=== PATIENT | female | born 1930 | race Caucasian/White ===

== ENCOUNTER 2018-03-19 03:42 | Inpatient (IN) | payer MEDICARE, OTHER ==
[~2018-03-19] VITALS: Ht 160 cm; Wt 77.8 kg
[2018-03-19] MEDS ORDERED: ONDANSETRON ODT 4 MG ONE (04:01)
[2018-03-19] MEDS ORDERED: MORPHINE SULFATE 4 MG/ML, 1ML ONE ×3 (04:17→05:56)
[2018-03-19] MEDS ORDERED: ONDANSETRON 2MG/ML, 2ML ONE (04:17)
[2018-03-19] MEDS: MORPHINE SULFATE 4 MG/ML, 1ML IVPush PRN ×2 (04:22→05:01)
[2018-03-19 04:48] LABS: BASOPHILS # (AUTO) 0.05 x10^3/uL (0-0.1); BASOPHILS % (AUTO) 1 % (0-1); EOSINOPHILS # (AUTO) 0.13 x10^3/uL (0-0.4); EOSINOPHILS % (AUTO) 2 % (1-7); LYMPHOCYTES # (AUTO) 1.57 x10^3/uL (1-3.4); LYMPHOCYTES % (AUTO) 21 % (22-44); MD NO; MEAN PLATELET VOLUME 7.9 fL (7.4-10.4); MONOCYTES # (AUTO) 0.63 x10^3/uL (0.2-0.8); MONOCYTES % (AUTO) 8 % (2-9); NEUTROPHILS # (AUTO) 5.07 x10^3/uL (1.8-6.8); NEUTROPHILS % (AUTO) 68 % (42-75); PLATELET COUNT 246 x10^3/uL (130-400)
[2018-03-19] MEDS ORDERED: OMNIPAQUE 350 MG/ML, 100ML BOTTLE ONE (04:50)
[2018-03-19 04:54] LABS: ALANINE AMINOTRANSFERASE 25 U/L (12-78); ALBUMIN 3.7 g/dL (3.4-5.0); ANION GAP 9 mmol/L (5-15); CALCIUM 9.3 mg/dL (8.5-10.1); CHLORIDE 109 mmol/L (98-107)
[2018-03-19 04:57] LABS: ALKALINE PHOSPHATASE 73 U/L (45-117); BILIRUBIN,TOTAL 0.4 mg/dL (0.2-1.0)
[2018-03-19 04:58] LABS: TOTAL PROTEIN 7.7 g/dL (6.4-8.2)
[2018-03-19 05:02] LABS: TROPONIN I < 0.015 ng/mL (0.000-0.045)
[2018-03-19] MEDS ORDERED: PARO40TA61 PO (05:08)
[2018-03-19] MEDS ORDERED: ESOM20CA PO (05:08)
[2018-03-19 05:48] LABS: MICROSCOPIC AUTO
[2018-03-19 05:51] LABS: CULTURE INDICATED? NO
[2018-03-19] MEDS ORDERED: MORPHINE SULFATE 4 MG/ML, 1ML IVPush ONE (06:30)
[2018-03-19 08:30] VITALS: BP 222/98
[2018-03-19 08:32] VITALS: BP 214/67
[2018-03-19] MEDS ORDERED: KETOROLAC 30 MG/1 ML IVPush ONE (09:00)
[2018-03-19] MEDS ORDERED: LABETALOL 5MG/ML, 20ML IVPush ONE (09:00)
[2018-03-19] MEDS ORDERED: MORPHINE SULFATE 4 MG/ML, 1ML IVPush PRN (09:00)
[2018-03-19] MEDS ORDERED: CHOL100011 PO (09:11)
[2018-03-19 09:25] VITALS: BP 136/67
[2018-03-19] MEDS ORDERED: ONDANSETRON ODT 4 MG PO PRN (09:30)
[2018-03-19] MEDS ORDERED: LABETALOL 5MG/ML, 20ML IVPush PRN (09:30)
[2018-03-19] MEDS ORDERED: ONDANSETRON 2MG/ML, 2ML IVPush PRN (09:30)
[2018-03-19] MEDS: SODIUM CHLORIDE 0.9% 1,000 ML IV SCH ×2 (11:29→22:51)
[2018-03-19] MEDS ORDERED: MAGNESIUM SULFATE PMX 2GM/50ML 50 ML IV ONE (11:30)
[2018-03-19] MEDS: TAMSULOSIN 0.4 MG CAP.ER.24H PO SCH (11:31)
[2018-03-19] MEDS: PANTOPRAZOLE 40 MG IV IVPush SCH (11:31)
[2018-03-19] MEDS: SENNA/DOCUSATE TABLET PO SCH (11:31)
[2018-03-19 14:35] VITALS: BP 96/49
[2018-03-19] MEDS: HEPARIN 5,000 UNITS/ML, 1ML SQ SCH (17:23)
[2018-03-19 21:47] VITALS: BP 113/48
[2018-03-20] MEDS: HEPARIN 5,000 UNITS/ML, 1ML SQ SCH ×3 (01:28→18:18)
[2018-03-20 01:38] VITALS: BP 105/42
[2018-03-20 04:26] LABS: BASOPHILS # (AUTO) 0.01 x10^3/uL (0-0.1); BASOPHILS % (AUTO) 0 % (0-1); EOSINOPHILS # (AUTO) 0.02 x10^3/uL (0-0.4); EOSINOPHILS % (AUTO) 0 % (1-7); LYMPHOCYTES # (AUTO) 0.89 x10^3/uL (1-3.4); LYMPHOCYTES % (AUTO) 16 % (22-44); MD NO; MEAN CORPUSCULAR HEMOGLOBIN 32.4 pg (27.0-34.8); MEAN CORPUSCULAR HGB CONC 33.4 g/dL (32.4-35.8); MEAN CORPUSCULAR VOLUME 97.2 fL (80-100); MEAN PLATELET VOLUME 7.7 fL (7.4-10.4); MONOCYTES # (AUTO) 0.59 x10^3/uL (0.2-0.8); MONOCYTES % (AUTO) 11 % (2-9); NEUTROPHILS # (AUTO) 4.12 x10^3/uL (1.8-6.8); NEUTROPHILS % (AUTO) 73 % (42-75); PLATELET COUNT 201 x10^3/uL (130-400); RED BLOOD COUNT 3.85 x10^6/uL (3.82-5.3); RED CELL DISTRIBUTION WIDTH 14.6 % (9.6-15.2)
[2018-03-20 04:30] LABS: ALBUMIN 2.9 g/dL (3.4-5.0); ANION GAP 5 mmol/L (5-15); CALCIUM 7.9 mg/dL (8.5-10.1); CHLORIDE 109 mmol/L (98-107)
[2018-03-20 04:34] LABS: ALANINE AMINOTRANSFERASE 426 U/L (12-78); ALKALINE PHOSPHATASE 115 U/L (45-117); BILIRUBIN,TOTAL 0.5 mg/dL (0.2-1.0); CREATININE 1.75 mg/dL (0.55-1.02)
[2018-03-20 04:49] LABS: HEMOGLOBIN A1C 6.3 % (4.2-6.3)
[2018-03-20] MEDS: SODIUM CHLORIDE 0.9% 1,000 ML IV SCH ×2 (06:06→15:26)
[2018-03-20 08:05] VITALS: BP 116/78
[2018-03-20] MEDS: TAMSULOSIN 0.4 MG CAP.ER.24H PO SCH (09:49)
[2018-03-20] MEDS: PANTOPRAZOLE 40 MG IV IVPush SCH (09:49)
[2018-03-20] MEDS: SENNA/DOCUSATE TABLET PO SCH (09:49)
[2018-03-20] MEDS ORDERED: TRAV5DRO OP (09:55)
[2018-03-20] MEDS: ACETAMINOPHEN 325 MG TABLET PO PRN ×2 (12:19→20:47)
[2018-03-20] MEDS ORDERED: CIPROFLOXACIN/DEXTROSE 200 MG/100 ML PREMIX IVPB SCH (13:00)
[2018-03-20 13:30] VITALS: BP 94/42
[2018-03-20 13:53] VITALS: BP 99/42
[2018-03-20] MEDS: METRONIDAZOLE PMX 500MG/100ML 100 ML IV SCH ×2 (17:06→23:00)
[2018-03-20 20:04] VITALS: BP 126/51
[2018-03-21] MEDS: HEPARIN 5,000 UNITS/ML, 1ML SQ SCH ×3 (01:25→18:42)
[2018-03-21] MEDS: SODIUM CHLORIDE 0.9% 1,000 ML IV SCH ×3 (01:26→22:53)
[2018-03-21 01:30] VITALS: BP 120/50
[2018-03-21] MEDS: METRONIDAZOLE PMX 500MG/100ML 100 ML IV SCH ×4 (05:02→22:53)
[2018-03-21 07:27] LABS: BASOPHILS # (AUTO) 0.03 x10^3/uL (0-0.1); BASOPHILS % (AUTO) 1 % (0-1); EOSINOPHILS % (AUTO) 3 % (1-7); LYMPHOCYTES # (AUTO) 0.85 x10^3/uL (1-3.4); LYMPHOCYTES % (AUTO) 21 % (22-44); MD NO; MEAN CORPUSCULAR HEMOGLOBIN 32.1 pg (27.0-34.8); MEAN CORPUSCULAR HGB CONC 33.1 g/dL (32.4-35.8); MEAN CORPUSCULAR VOLUME 97.1 fL (80-100); MEAN PLATELET VOLUME 7.7 fL (7.4-10.4); MONOCYTES # (AUTO) 0.51 x10^3/uL (0.2-0.8); MONOCYTES % (AUTO) 12 % (2-9); NEUTROPHILS # (AUTO) 2.62 x10^3/uL (1.8-6.8); NEUTROPHILS % (AUTO) 64 % (42-75); PLATELET COUNT 178 x10^3/uL (130-400); RED BLOOD COUNT 3.92 x10^6/uL (3.82-5.3); RED CELL DISTRIBUTION WIDTH 14.5 % (9.6-15.2)
[2018-03-21 07:38] LABS: ALANINE AMINOTRANSFERASE 247 U/L (12-78); ALBUMIN 2.8 g/dL (3.4-5.0); ANION GAP 6 mmol/L (5-15); CALCIUM 7.8 mg/dL (8.5-10.1); CHLORIDE 114 mmol/L (98-107); CREATININE 0.96 mg/dL (0.55-1.02)
[2018-03-21 07:40] LABS: ALKALINE PHOSPHATASE 111 U/L (45-117); BILIRUBIN,TOTAL 0.5 mg/dL (0.2-1.0); TOTAL PROTEIN 6.1 g/dL (6.4-8.2)
[2018-03-21 08:49] VITALS: BP 152/66
[2018-03-21] MEDS: SENNA/DOCUSATE TABLET PO SCH (08:51)
[2018-03-21] MEDS: PANTOPRAZOLE 40 MG IV IVPush SCH (08:51)
[2018-03-21] MEDS: TAMSULOSIN 0.4 MG CAP.ER.24H PO SCH (08:51)
[2018-03-21] MEDS ORDERED: CIPROFLOXACIN IV SCH (13:00)
[2018-03-21] MEDS ORDERED: DEXTROSE 5% IV SCH (13:00)
[2018-03-21 13:30] VITALS: BP 141/61
[2018-03-21 19:42] VITALS: BP 121/56
[2018-03-22] MEDS: HEPARIN 5,000 UNITS/ML, 1ML SQ SCH ×2 (01:35→09:33)
[2018-03-22] MEDS: CIPROFLOXACIN/DEXT 200MG PMX 100 ML IVPB SCH ×2 (01:36→14:00)
[2018-03-22 01:50] VITALS: BP 150/57
[2018-03-22] MEDS ORDERED: DEXTROSE 5% IV SCH (02:00)
[2018-03-22] MEDS ORDERED: CIPROFLOXACIN IV SCH (02:00)
[2018-03-22] MEDS: METRONIDAZOLE PMX 500MG/100ML 100 ML IV SCH ×2 (04:51→11:54)
[2018-03-22 06:38] LABS: ALANINE AMINOTRANSFERASE 156 U/L (12-78); ALBUMIN 2.6 g/dL (3.4-5.0); ANION GAP 8 mmol/L (5-15); CHLORIDE 114 mmol/L (98-107); CREATININE 0.69 mg/dL (0.55-1.02)
[2018-03-22 06:40] LABS: ALKALINE PHOSPHATASE 93 U/L (45-117); BILIRUBIN,TOTAL 0.4 mg/dL (0.2-1.0); TOTAL PROTEIN 5.8 g/dL (6.4-8.2)
[2018-03-22 07:30] VITALS: BP 179/75
[2018-03-22 08:58] VITALS: BP 147/79
[2018-03-22] MEDS: PANTOPRAZOLE 40 MG IV IVPush SCH (09:32)
[2018-03-22] MEDS: SENNA/DOCUSATE TABLET PO SCH (09:33)
[2018-03-22] MEDS: SODIUM CHLORIDE 0.9% 1,000 ML IV SCH (09:33)
[2018-03-22] MEDS: TAMSULOSIN 0.4 MG CAP.ER.24H PO SCH (09:33)
[2018-03-22 12:39] VITALS: BP 157/70
[2018-03-29 14:20] LABS: MEAN CORPUSCULAR HEMOGLOBIN 32.3 pg (27.0-34.8); MEAN CORPUSCULAR HGB CONC 33.5 g/dL (32.4-35.8); MEAN CORPUSCULAR VOLUME 96.5 fL (80-100); RED BLOOD COUNT 4.79 x10^6/uL (3.82-5.3); RED CELL DISTRIBUTION WIDTH 14.6 % (9.6-15.2)
[2018-03-29 14:22] LABS: CREATININE 1.23 mg/dL (0.55-1.02)
== END 2018-03-22 14:48 | disposition home or self-care (01) | DRG 693 ==
LOC: EDSEX 03:42 → ED 06:06 → EDIP 06:11 → 3NW 07:25 → DCLOUNGE 03-22 14:35
PROVIDERS: ADMIT Internal Medicine; ATTEND Family Medicine
DX: N13.2 Hydronephrosis with renal and ureteral calculous obstruction (principal); J96.21 Acute and chronic respiratory failure with hypoxia; N17.0 Acute kidney failure with tubular necrosis; Z87.891 Personal history of nicotine dependence; E86.0 Dehydration; F41.9 Anxiety disorder, unspecified; I10 Essential (primary) hypertension; K21.9 Gastro-esophageal reflux disease without esophagitis; K56.41 Fecal impaction; N13.1 Hydronephrosis with ureteral stricture, not elsewhere classified; Z66 Do not resuscitate; K83.8 Other specified diseases of biliary tract; K57.90 Diverticulosis of intestine, part unspecified, without perforation or abscess without bleeding; R74.0 Nonspecific elevation of levels of transaminase and lactic acid dehydrogenase [LDH]; Z88.6 Allergy status to analgesic agent; Z88.1 Allergy status to other antibiotic agents; Z90.49 Acquired absence of other specified parts of digestive tract; Z87.442 Personal history of urinary calculi; Z90.710 Acquired absence of both cervix and uterus
CPT/HCPCS: 36415; 71045; 74177; 74181; 80053; 81001; 83036; 83605; 83690; 83735; 84100; 84484; 85025; 93005; 96374; 96376; G0378; J1644; J1885; Q9967; C9113; J0744; J3475; J7030

== ENCOUNTER 2019-10-08 02:01 | Observation (INO) | payer MEDICARE, OTHER ==
[~2019-10-08] VITALS: Ht 160 cm; Wt 73.0 kg
[~2019-10-08 02:01] MED LIST: CHOL100011 PO; ESOM20CA PO; PARO40TA61 PO; TRAV5DRO OP
[2019-10-08] MEDS ORDERED: ONDANSETRON 2MG/ML, 2ML ONE (02:22)
[2019-10-08] MEDS ORDERED: MORPHINE SULFATE 4 MG/ML, 1ML ONE ×2 (02:22→03:02)
[2019-10-08] MEDS ORDERED: ONDANSETRON 2MG/ML, 2ML IVPush ONE (02:30)
[2019-10-08] MEDS ORDERED: SODIUM CHLORIDE FLUSH 10ML SYR IVF ONE (02:30)
[2019-10-08] MEDS: MORPHINE SULFATE 4 MG/ML, 1ML IVPush PRN ×2 (02:31→03:05)
--- NOTE | 2019-10-08 02:41 | NUR ---
THIS IS AN 89Y F THAT COMES IN TONIGHT FOR R SIDED ABD PAIN STARTING TONIGHT, PT DENIES NEW FOODS OR MEDICATIONS. PT CONNECTED TO ALL MONITORING, VSS, NADN, FAMILY AT BEDSIDE, PIV STARTED AND MEDICATED FOR PAIN AND NAUSEA PER MAR. PT AND FAMILY EDUCATED ON NEED FOR URINE SAMPLE AT THIS TIME.
[2019-10-08 02:56] LABS: BASOPHILS # (AUTO) 0.02 x10^3/uL (0-0.1); BASOPHILS % (AUTO) 0 % (0-1); EOSINOPHILS # (AUTO) 0.06 x10^3/uL (0-0.4); EOSINOPHILS % (AUTO) 1 % (1-7); LYMPHOCYTES # (AUTO) 1.14 x10^3/uL (1-3.4); LYMPHOCYTES % (AUTO) 10 % (22-44); MD NO; MEAN CORPUSCULAR HEMOGLOBIN 31.6 pg (27.0-34.8); MEAN CORPUSCULAR VOLUME 95.9 fL (80-100); MONOCYTES # (AUTO) 0.59 x10^3/uL (0.2-0.8); MONOCYTES % (AUTO) 5 % (2-9); NEUTROPHILS # (AUTO) 9.46 x10^3/uL (1.8-6.8); NEUTROPHILS % (AUTO) 84 % (42-75); PLATELET COUNT 237 x10^3/uL (130-400); RED CELL DISTRIBUTION WIDTH 14.1 % (9.6-15.2)
[2019-10-08 03:04] LABS: ALANINE AMINOTRANSFERASE 28 U/L (12-78); ANION GAP 7 mmol/L (5-15); CALCIUM 9.5 mg/dL (8.5-10.1); CHLORIDE 108 mmol/L (98-107); CREATININE 1.25 mg/dL (0.55-1.02)
[2019-10-08 03:07] LABS: ALKALINE PHOSPHATASE 76 U/L (45-117); BILIRUBIN,TOTAL 0.3 mg/dL (0.2-1.0); TOTAL PROTEIN 8.3 g/dL (6.4-8.2)
--- NOTE | 2019-10-08 03:07 | NUR ---
PT REQ ADDITONAL PAIN MEDS PAIN STILL 8/10 AT THIS TIME. PT MEDICATED PER JUL FOR PAIN. 5 RIGHTS VERIFIED, BILAT BP DONE
--- NOTE | 2019-10-08 03:08 | NUR ---
PT TO CT AT THIS TIME
[2019-10-08] MEDS ORDERED: OMNIPAQUE 350 MG/ML, 100ML BOTTLE ONE (03:22)
--- NOTE | 2019-10-08 03:35 | NUR ---
URINE SENT TO LAB
[2019-10-08 03:42] LABS: MICROSCOPIC AUTO
--- NOTE | 2019-10-08 03:56 | NUR ---
PT STS SHE FEELS SO MUCH BETTER NOW AND HAS NO NEEDS AT THIS TIME
[2019-10-08] MEDS ORDERED: SODIUM CHLORIDE 0.9% 1,000 ML IV ONE (04:18)
[2019-10-08] MEDS ORDERED: ONDANSETRON 2MG/ML, 2ML IVPush PRN (04:30)
[2019-10-08] MEDS ORDERED: MORPHINE SULFATE 4 MG/ML, 1ML IVPush PRN ×2 (04:30→05:00)
--- NOTE | 2019-10-08 04:35 | NUR ---
REPORT TO FLOOR RN, PT READY FOR TRANSFER TO ROOM [id number]
[2019-10-08 04:53] VITALS: BP 118/74
[2019-10-08] MEDS ORDERED: SODIUM CHLORIDE 0.9% 1,000 ML IV SCH (04:59)
[2019-10-08] MEDS ORDERED: ENALAPRILAT 1.25 MG/ML, 2ML IVPush PRN (05:00)
[2019-10-08] MEDS ORDERED: ENOXAPARIN 30 MG/0.3 ML SQ SCH (05:00)
[2019-10-08] MEDS: SODIUM CHLORIDE 0.9% 1,000 ML IV SCH ×3 (06:30→22:30)
[2019-10-08 06:52] VITALS: BP 125/62
[2019-10-08] MEDS: TRAVOPROST OPHTH 0.004%, 2.5ML OP SCH (09:00)
[2019-10-08 12:48] VITALS: BP 141/59
[2019-10-08] MEDS ORDERED: ACETAMINOPHEN 325 MG TABLET PO PRN (13:00)
[2019-10-08 18:51] VITALS: BP 117/54
[2019-10-09 00:53] VITALS: BP 142/62
[2019-10-09] MEDS ORDERED: SODIUM CHLORIDE 0.9% 1,000 ML IV SCH (04:59)
[2019-10-09 07:19] LABS: ANION GAP 3 mmol/L (5-15); CALCIUM 8.1 mg/dL (8.5-10.1); CHLORIDE 114 mmol/L (98-107); CREATININE 0.89 mg/dL (0.55-1.02)
[2019-10-09 07:29] VITALS: BP 144/54
[2019-10-09] MEDS: SODIUM CHLORIDE 0.9% 1,000 ML IV SCH (07:30)
[2019-10-09 08:14] LABS: BASOPHILS # (AUTO) 0.02 x10^3/uL (0-0.1); BASOPHILS % (AUTO) 1 % (0-1); EOSINOPHILS # (AUTO) 0.08 x10^3/uL (0-0.4); EOSINOPHILS % (AUTO) 2 % (1-7); LYMPHOCYTES # (AUTO) 1.04 x10^3/uL (1-3.4); LYMPHOCYTES % (AUTO) 25 % (22-44); MD NO; MEAN CORPUSCULAR HEMOGLOBIN 31.8 pg (27.0-34.8); MEAN CORPUSCULAR HGB CONC 32.6 g/dL (32.4-35.8); MEAN CORPUSCULAR VOLUME 97.5 fL (80-100); MEAN PLATELET VOLUME 7.7 fL (7.4-10.4); MONOCYTES # (AUTO) 0.45 x10^3/uL (0.2-0.8); MONOCYTES % (AUTO) 11 % (2-9); NEUTROPHILS # (AUTO) 2.58 x10^3/uL (1.8-6.8); NEUTROPHILS % (AUTO) 62 % (42-75); PLATELET COUNT 212 x10^3/uL (130-400); RED BLOOD COUNT 4.33 x10^6/uL (3.82-5.3)
[2019-10-09] MEDS: TRAVOPROST OPHTH 0.004%, 2.5ML OP SCH (09:25)
[2019-10-09 12:53] VITALS: BP 115/62
== END 2019-10-09 15:25 | disposition home or self-care (01) ==
LOC: ED 03:01 → EDIP 04:22 → INTOOBSV 04:22 → 4NE 04:39
PROVIDERS: ADMIT Family Medicine; ATTEND Family Medicine
DX: Z03.818 Encounter for observation for suspected exposure to other biological agents ruled out (principal); N13.2 Hydronephrosis with renal and ureteral calculous obstruction; E86.0 Dehydration; N17.9 Acute kidney failure, unspecified; K21.9 Gastro-esophageal reflux disease without esophagitis; H40.9 Unspecified glaucoma; I45.10 Unspecified right bundle-branch block; F32.9 Major depressive disorder, single episode, unspecified; I10 Essential (primary) hypertension; Z87.891 Personal history of nicotine dependence
CPT/HCPCS: 36415; 74177; 80048; 80053; 81001; 83036; 83690; 85025; 93005; 96361; 96372; 96374; 96375; 96376; 99285; G0378; J1650; J2270; J2405; J7030; Q9967; U0001